=== PATIENT | female | born 1975 | race Caucasian/White ===

== ENCOUNTER 2016-12-24 00:11 | Inpatient (IN) | payer OTHER, MEDICARE ==
[~2016-12-24] VITALS: Ht 175.3 cm; Wt 143.8 kg
[2016-12-24 01:02] LABS: HEMATOCRIT 28.4 % (34.6-47.8); HEMOGLOBIN 9.4 g/dL (11.7-16.4)
[2016-12-24 01:09] LABS: BLOOD UREA NITROGEN 96 mg/dL (7-18)
[2016-12-24 02:28] LABS: IS PT STATUS REG ER OR PRE ER? YES
[2016-12-24] MEDS ORDERED: ONDANSETRON 2MG/ML, 2ML IV PRN (02:30)
[2016-12-24] MEDS ORDERED: NITROGLYCERIN 0.4 MG BOTTLE (25 TABS) SL PRN (02:30)
[2016-12-24] MEDS ORDERED: NITROGLYCERIN 0.4 MG/SPRAY SL PRN (02:30)
[2016-12-24 03:19] LABS: IS PT STATUS REG ER OR PRE ER? YES
[2016-12-24] MEDS ORDERED: [UNRECOGNIZED DRUG - CODE] INJ (04:14)
[2016-12-24] MEDS ORDERED: AMLO2.5T PO (04:14)
[2016-12-24] MEDS ORDERED: DULO60CA7 PO (04:14)
[2016-12-24] MEDS ORDERED: CALC0.25 PO (04:14)
[2016-12-24] MEDS ORDERED: GABA300C10 PO (04:14)
[2016-12-24] MEDS ORDERED: MAGN400T36 PO (04:14)
[2016-12-24] MEDS ORDERED: VALS40TA2 PO (04:14)
[2016-12-24] MEDS ORDERED: ARIP5TAB13 PO (04:14)
[2016-12-24] MEDS: ROPINIROLE 0.25MG TABLET PO SCH ×4 (04:15→21:06)
[2016-12-24] MEDS: SODIUM CHLORIDE FLUSH 10ML SYR IVF SCH ×2 (09:00→21:07)
[2016-12-24] MEDS ORDERED: ROPINIROLE 0.25MG TABLET PO SCH (09:00)
[2016-12-24 09:16] VITALS: BP 183/122
[2016-12-24] MEDS: HEPARIN 5,000 UNITS/ML, 1ML SQ SCH ×2 (10:00→18:00)
[2016-12-24 10:27] LABS: IS PT STATUS REG ER OR PRE ER? NO
[2016-12-24 14:58] LABS: IS PT STATUS REG ER OR PRE ER? NO
[2016-12-24 16:00] VITALS: BP 167/103
[2016-12-24] MEDS: ACETAMINOPHEN 325 MG TABLET PO PRN (18:20)
[2016-12-24 18:55] VITALS: BP 170/98
[2016-12-25 01:38] VITALS: BP 170/102
[2016-12-25] MEDS: HEPARIN 5,000 UNITS/ML, 1ML SQ SCH ×2 (01:53→10:14)
[2016-12-25] MEDS: ACETAMINOPHEN 325 MG TABLET PO PRN ×3 (01:53→12:52)
[2016-12-25] MEDS ORDERED: hydrALAzine 20 MG/ML, 1ML ONE (02:06)
[2016-12-25] MEDS ORDERED: LABE100T3 PO (02:26)
[2016-12-25] MEDS ORDERED: hydrALAzine 20 MG/ML, 1ML IV PRN (02:30)
[2016-12-25 05:38] LABS: BLOOD UREA NITROGEN 94 mg/dL (7-18)
[2016-12-25 05:55] LABS: HEMATOCRIT 29.3 % (34.6-47.8); HEMOGLOBIN 9.9 g/dL (11.7-16.4); WHITE BLOOD COUNT 9.3 x10^3/uL (3.4-10)
[2016-12-25 07:53] VITALS: BP 169/100
[2016-12-25] MEDS: ROPINIROLE 0.25MG TABLET PO SCH ×2 (08:31→16:00)
[2016-12-25] MEDS ORDERED: AMLODIPINE 2.5 MG TABLET PO SCH (09:00)
[2016-12-25] MEDS: SODIUM CHLORIDE FLUSH 10ML SYR IVF SCH (09:00)
[2016-12-25] MEDS ORDERED: DULOXETINE 30 MG CAPSULE.DR PO SCH (09:00)
[2016-12-25] MEDS ORDERED: CALCITRIOL 0.25 MCG CAPSULE PO SCH (09:00)
[2016-12-25] MEDS ORDERED: ARIPIPRAZOLE 5 MG TABLET PO SCH (09:00)
[2016-12-25] MEDS ORDERED: MAGNESIUM OXIDE 400 MG TABLET PO SCH (09:00)
[2016-12-25] MEDS ORDERED: VALSARTAN 80 MG TABLET PO SCH ×2 (09:30→21:00)
[2016-12-25 10:08] LABS: HEP B SURF. AB 71.5 mIU/mL (0.0-10.0)
[2016-12-25 13:03] VITALS: BP 168/98
[2016-12-25] MEDS ORDERED: LABETALOL 100 MG TABLET PO SCH (18:00)
== END 2016-12-25 18:33 | disposition home or self-care (01) | DRG 682 ==
LOC: ED 02:37 → EDIP 02:50 → 5SO 08:34
PROVIDERS: ADMIT Internal Medicine; ATTEND Internal Medicine
PROC: 5A1D70Z Performance of Urinary Filtration, Intermittent, Less than 6 Hours Per Day (ICD-10-PCS; principal; 2016-12-24)
DX: I13.11 Hypertensive heart and chronic kidney disease without heart failure, with stage 5 chronic kidney disease, or end stage renal disease (principal); N18.6 End stage renal disease; G61.0 Guillain-Barre syndrome; I27.21 Secondary pulmonary arterial hypertension; N25.81 Secondary hyperparathyroidism of renal origin; R06.00 Dyspnea, unspecified; D63.1 Anemia in chronic kidney disease; D72.829 Elevated white blood cell count, unspecified; Z82.49 Family history of ischemic heart disease and other diseases of the circulatory system; Z99.2 Dependence on renal dialysis
CPT/HCPCS: 36415; 71010; 80048; 80061; 82040; 83880; 84484; 85025; 86704; 86706; 87340; 93005; 93306; J1644; J2405; J0360

== ENCOUNTER 2017-04-23 01:07 | Inpatient (IN) | payer MEDICARE, OTHER ==
[~2017-04-23] VITALS: Ht 175.3 cm; Wt 126.7 kg
[~2017-04-23 01:07] MED LIST: AMLO2.5T PO; ARIP5TAB13 PO; CALC0.25 PO; DULO60CA7 PO; GABA300C10 PO; LABE100T3 PO; MAGN400T36 PO; VALS40TA2 PO; [UNRECOGNIZED DRUG - CODE] INJ
[2017-04-23] MEDS ORDERED: SODIUM CHLORIDE FLUSH 10ML SYR IVF ONE (01:30)
[2017-04-23 01:32] LABS: BASOPHILS # (AUTO) 0.04 x10^3/uL (0-0.1); BASOPHILS % (AUTO) 0 % (0-1); EOSINOPHILS # (AUTO) 0.27 x10^3/uL (0-0.4); EOSINOPHILS % (AUTO) 2 % (1-7); LYMPHOCYTES # (AUTO) 2.26 x10^3/uL (1-3.4); LYMPHOCYTES % (AUTO) 19 % (22-44); MD NO; MEAN CORPUSCULAR HEMOGLOBIN 32.8 pg (27.0-34.8); MEAN CORPUSCULAR VOLUME 99.5 fL (80-100); MONOCYTES # (AUTO) 0.67 x10^3/uL (0.2-0.8); MONOCYTES % (AUTO) 6 % (2-9); NEUTROPHILS # (AUTO) 8.52 x10^3/uL (1.8-6.8); NEUTROPHILS % (AUTO) 73 % (42-75); PLATELET COUNT 153 x10^3/uL (130-400); RED BLOOD COUNT 2.37 x10^6/uL (3.82-5.3); RED CELL DISTRIBUTION WIDTH 15.6 % (9.6-15.2)
[2017-04-23 01:45] LABS: ALANINE AMINOTRANSFERASE 14 U/L (12-78); ALBUMIN 3.2 g/dL (3.4-5.0); ANION GAP 16 mmol/L (5-15); CALCIUM 8.8 mg/dL (8.5-10.1); CHLORIDE 101 mmol/L (98-107)
[2017-04-23 01:49] LABS: ALKALINE PHOSPHATASE 97 U/L (45-117); BILIRUBIN,TOTAL 0.5 mg/dL (0.2-1.0); TOTAL PROTEIN 7.5 g/dL (6.4-8.2)
[2017-04-23 03:06] VITALS: BP 168/96
[2017-04-23] MEDS ORDERED: hydrALAzine 20 MG/ML, 1ML IVPush PRN (06:00)
[2017-04-23] MEDS ORDERED: ACETAMINOPHEN 325 MG TABLET PO PRN (06:00)
[2017-04-23] MEDS ORDERED: ONDANSETRON 2MG/ML, 2ML IVPush PRN (06:00)
[2017-04-23 08:07] VITALS: BP 149/90
[2017-04-23] MEDS ORDERED: ARANESP 100 MCG/ML **ESRD SQ SCH (08:30)
[2017-04-23] MEDS: ARIPIPRAZOLE 5 MG TABLET PO SCH (10:09)
[2017-04-23] MEDS: MAGNESIUM OXIDE 400 MG TABLET PO SCH (10:10)
[2017-04-23] MEDS: AMLODIPINE 5 MG TABLET PO SCH (10:10)
[2017-04-23] MEDS: CALCITRIOL 0.25 MCG CAPSULE PO SCH (10:10)
[2017-04-23] MEDS: DULOXETINE 30 MG CAPSULE.DR PO SCH (10:10)
[2017-04-23 13:02] VITALS: BP 155/88
[2017-04-23 13:27] LABS: MICROSCOPIC MANUAL
[2017-04-23 13:29] LABS: CULTURE INDICATED? YES
[2017-04-23] MEDS ORDERED: GABAPENTIN 300 MG CAPSULE PO SCH (21:00)
[2017-04-23 21:01] VITALS: BP 164/100
[2017-04-23] MEDS: LABETALOL 100 MG TABLET PO SCH (21:01)
[2017-04-23 21:29] VITALS: BP 165/93
[2017-04-24 01:29] VITALS: BP 147/91
[2017-04-24 04:56] LABS: BASOPHILS # (AUTO) 0.04 x10^3/uL (0-0.1); BASOPHILS % (AUTO) 1 % (0-1); EOSINOPHILS # (AUTO) 0.22 x10^3/uL (0-0.4); EOSINOPHILS % (AUTO) 3 % (1-7); LYMPHOCYTES # (AUTO) 2.21 x10^3/uL (1-3.4); LYMPHOCYTES % (AUTO) 26 % (22-44); MD NO; MEAN CORPUSCULAR HEMOGLOBIN 33.5 pg (27.0-34.8); MEAN CORPUSCULAR HGB CONC 33.6 g/dL (32.4-35.8); MEAN CORPUSCULAR VOLUME 99.5 fL (80-100); MEAN PLATELET VOLUME 6.4 fL (7.4-10.4); MONOCYTES # (AUTO) 0.62 x10^3/uL (0.2-0.8); MONOCYTES % (AUTO) 7 % (2-9); NEUTROPHILS # (AUTO) 5.42 x10^3/uL (1.8-6.8); NEUTROPHILS % (AUTO) 64 % (42-75); PLATELET COUNT 152 x10^3/uL (130-400); RED BLOOD COUNT 2.45 x10^6/uL (3.82-5.3); RED CELL DISTRIBUTION WIDTH 15.1 % (9.6-15.2)
[2017-04-24 05:07] LABS: CHLORIDE 103 mmol/L (98-107)
[2017-04-24 05:22] LABS: ALANINE AMINOTRANSFERASE 14 U/L (12-78); ALBUMIN 3.3 g/dL (3.4-5.0); ALKALINE PHOSPHATASE 96 U/L (45-117); ANION GAP 10 mmol/L (5-15); BILIRUBIN,TOTAL 0.5 mg/dL (0.2-1.0); CALCIUM 9.3 mg/dL (8.5-10.1); CREATININE 8.67 mg/dL (0.55-1.02); THYROID STIMULATING HORMONE 0.017 mIU/L (0.358-3.740); TOTAL PROTEIN 7.7 g/dL (6.4-8.2)
[2017-04-24 06:59] VITALS: BP 152/91
[2017-04-24] MEDS: CALCITRIOL 0.25 MCG CAPSULE PO SCH (08:52)
[2017-04-24] MEDS: MAGNESIUM OXIDE 400 MG TABLET PO SCH (08:52)
[2017-04-24] MEDS: DULOXETINE 30 MG CAPSULE.DR PO SCH (08:53)
[2017-04-24] MEDS: ARIPIPRAZOLE 5 MG TABLET PO SCH (08:53)
[2017-04-24] MEDS: LABETALOL 100 MG TABLET PO SCH (08:53)
[2017-04-24] MEDS: AMLODIPINE 5 MG TABLET PO SCH (08:53)
[2017-04-27] MEDS ORDERED: AMLO5TAB2 PO (12:28)
[2017-04-27] MEDS ORDERED: LABE200T3 PO (12:32)
[2017-04-27] MEDS ORDERED: VALS320T2 PO (12:33)
[2017-04-27] MEDS ORDERED: CALC0.5C9 PO (12:35)
== END 2017-04-24 12:36 | disposition home or self-care (01) | DRG 682 ==
LOC: ED 02:14 → EDIP 02:17 → 3NW 02:50
PROVIDERS: ADMIT Hospitalist; ATTEND Hospitalist
PROC: 5A1D70Z Performance of Urinary Filtration, Intermittent, Less than 6 Hours Per Day (ICD-10-PCS; principal; 2017-04-23)
DX: I12.0 Hypertensive chronic kidney disease with stage 5 chronic kidney disease or end stage renal disease (principal); N18.6 End stage renal disease; J96.00 Acute respiratory failure, unspecified whether with hypoxia or hypercapnia; I42.9 Cardiomyopathy, unspecified; E66.01 Morbid (severe) obesity due to excess calories; E87.5 Hyperkalemia; E75.21 Fabry (-Anderson) disease; N25.81 Secondary hyperparathyroidism of renal origin; N39.0 Urinary tract infection, site not specified; Z68.41 Body mass index [BMI] 40.0-44.9, adult; D63.8 Anemia in other chronic diseases classified elsewhere; Z99.2 Dependence on renal dialysis; D63.1 Anemia in chronic kidney disease; I16.0 Hypertensive urgency; Z59.0 Homelessness; Z82.49 Family history of ischemic heart disease and other diseases of the circulatory system; Z91.19 Patient's noncompliance with other medical treatment and regimen
CPT/HCPCS: 36415; 71045; 80053; 83880; 84443; 84703; 85025; 87086; 93005; 99285; J0882

== ENCOUNTER 2017-05-09 23:35 | Emergency (ER) | payer MEDICAID, MEDICARE ==
[~2017-05-09] VITALS: Ht 175.3 cm; Wt 126.7 kg
[~2017-05-09 23:35] MED LIST changes: +AMLO5TAB2 PO; +CALC0.5C9 PO; +DULO30CA2 PO; +LABE200T3 PO; +VALS320T2 PO
[2017-05-09 23:38] VITALS: BP 175/108
[2017-05-10] MEDS ORDERED: GABAPENTIN 300 MG CAPSULE ONE (00:47)
[2017-05-10] MEDS ORDERED: KETOROLAC 30 MG/1 ML ONE (00:47)
[2017-05-10] MEDS ORDERED: KETOROLAC 30 MG/1 ML IM ONE (01:00)
[2017-05-10] MEDS ORDERED: GABAPENTIN 300 MG CAPSULE PO ONE (01:00)
== END 2017-05-10 01:22 | disposition home or self-care (01) ==
LOC: ED 23:59
DX: M79.672 Pain in left foot (principal); M79.642 Pain in left hand; M79.641 Pain in right hand; I12.9 Hypertensive chronic kidney disease with stage 1 through stage 4 chronic kidney disease, or unspecified chronic kidney disease; N18.9 Chronic kidney disease, unspecified; G62.9 Polyneuropathy, unspecified
CPT/HCPCS: 96372; 99283; J1885

== ENCOUNTER 2017-05-21 09:45 | Emergency (ER) | payer SELFPAY ==
[~2017-05-21] VITALS: Ht 175.3 cm; Wt 125.8 kg
[2017-05-21] MEDS ORDERED: ALBUTEROL/IPRATROPIUM 2.5MG/0.5MG, 3 ML ONE (10:13)
[2017-05-21] MEDS ORDERED: ALBUTEROL/IPRATROPIUM 2.5MG/0.5MG, 3 ML NPPB ONE (10:30)
[2017-05-21 10:34] LABS: ALBUMIN 3.3 g/dL (3.4-5.0); ANION GAP 8 mmol/L (5-15); CHLORIDE 100 mmol/L (98-107)
[2017-05-21 10:55] LABS: BASOPHILS # (AUTO) 0.04 x10^3/uL (0-0.1); BASOPHILS % (AUTO) 0 % (0-1); EOSINOPHILS # (AUTO) 0.15 x10^3/uL (0-0.4); EOSINOPHILS % (AUTO) 1 % (1-7); LYMPHOCYTES # (AUTO) 2.03 x10^3/uL (1-3.4); LYMPHOCYTES % (AUTO) 19 % (22-44); MD NO; MEAN CORPUSCULAR HGB CONC 33.8 g/dL (32.4-35.8); MEAN CORPUSCULAR VOLUME 100.6 fL (80-100); MONOCYTES # (AUTO) 0.54 x10^3/uL (0.2-0.8); MONOCYTES % (AUTO) 5 % (2-9); NEUTROPHILS # (AUTO) 7.88 x10^3/uL (1.8-6.8); NEUTROPHILS % (AUTO) 74 % (42-75); PLATELET COUNT 295 x10^3/uL (130-400); RED BLOOD COUNT 2.59 x10^6/uL (3.82-5.3); RED CELL DISTRIBUTION WIDTH 14.5 % (9.6-15.2)
[2017-05-21 11:36] VITALS: BP 189/112
[2017-05-22] MEDS ORDERED: LABE100T3 PO (21:50)
== END 2017-05-21 11:44 | disposition home or self-care (01) ==
LOC: ED 11:05
DX: J20.8 Acute bronchitis due to other specified organisms (principal); B97.89 Other viral agents as the cause of diseases classified elsewhere; I12.9 Hypertensive chronic kidney disease with stage 1 through stage 4 chronic kidney disease, or unspecified chronic kidney disease; N18.9 Chronic kidney disease, unspecified; Z91.14 Patient's other noncompliance with medication regimen; Z99.2 Dependence on renal dialysis
CPT/HCPCS: 36415; 71046; 80048; 82040; 83605; 85025; 93005; 94640; 99285; J7620

== ENCOUNTER 2017-05-22 21:05 | Emergency (ER) | payer SELFPAY ==
[~2017-05-22] VITALS: Ht 175.3 cm; Wt 126.9 kg
[2017-05-22] MEDS ORDERED: LABE100T3 PO (21:50)
[2017-05-22 21:52] LABS: BASOPHILS # (AUTO) 0.05 x10^3/uL (0-0.1); BASOPHILS % (AUTO) 0 % (0-1); EOSINOPHILS % (AUTO) 2 % (1-7); LYMPHOCYTES # (AUTO) 2.46 x10^3/uL (1-3.4); LYMPHOCYTES % (AUTO) 21 % (22-44); MD NO; MEAN CORPUSCULAR HEMOGLOBIN 33.7 pg (27.0-34.8); MEAN CORPUSCULAR HGB CONC 33.8 g/dL (32.4-35.8); MEAN CORPUSCULAR VOLUME 99.9 fL (80-100); MEAN PLATELET VOLUME 6.4 fL (7.4-10.4); MONOCYTES # (AUTO) 0.64 x10^3/uL (0.2-0.8); MONOCYTES % (AUTO) 5 % (2-9); NEUTROPHILS # (AUTO) 8.63 x10^3/uL (1.8-6.8); NEUTROPHILS % (AUTO) 72 % (42-75); PLATELET COUNT 290 x10^3/uL (130-400); RED BLOOD COUNT 2.32 x10^6/uL (3.82-5.3); RED CELL DISTRIBUTION WIDTH 14.9 % (9.6-15.2)
[2017-05-22] MEDS ORDERED: ALBUTEROL/IPRATROPIUM 2.5MG/0.5MG, 3 ML ONE (21:52)
[2017-05-22] MEDS: ALBUTEROL/IPRATROPIUM 2.5MG/0.5MG, 3 ML NPPB SCH ×2 (21:57→21:58)
[2017-05-22 22:03] LABS: ALANINE AMINOTRANSFERASE 14 U/L (12-78); ALBUMIN 3.2 g/dL (3.4-5.0); ANION GAP 7 mmol/L (5-15); CALCIUM 9.1 mg/dL (8.5-10.1); CHLORIDE 105 mmol/L (98-107)
[2017-05-22 22:07] LABS: ALKALINE PHOSPHATASE 83 U/L (45-117); BILIRUBIN,TOTAL 0.4 mg/dL (0.2-1.0); TOTAL PROTEIN 7.3 g/dL (6.4-8.2)
[2017-05-22] MEDS ORDERED: LABETALOL 100 MG TABLET PO SCH (22:30)
[2017-05-22 23:09] VITALS: BP 200/115
[2017-05-23] MEDS ORDERED: VALSARTAN 320 MG TABLET PO SCH (09:00)
== END 2017-05-22 23:12 | disposition home or self-care (01) ==
LOC: ED 21:29
DX: N18.3 Chronic kidney disease, stage 3 (moderate) (principal); I12.9 Hypertensive chronic kidney disease with stage 1 through stage 4 chronic kidney disease, or unspecified chronic kidney disease; B34.9 Viral infection, unspecified; Z99.2 Dependence on renal dialysis; Z91.19 Patient's noncompliance with other medical treatment and regimen; Z91.14 Patient's other noncompliance with medication regimen; Z88.5 Allergy status to narcotic agent
CPT/HCPCS: 36415; 80053; 83880; 85025; 93005; 94640; 99285; J7620

== ENCOUNTER 2017-05-23 21:20 | Emergency (ER) | payer SELFPAY ==
[~2017-05-23] VITALS: Ht 175.3 cm; Wt 82.0 kg
[2017-05-23 21:22] VITALS: BP 176/92
== END 2017-05-23 22:28 | disposition home or self-care (01) ==
LOC: ED 22:10
DX: J20.8 Acute bronchitis due to other specified organisms (principal); B97.89 Other viral agents as the cause of diseases classified elsewhere; I10 Essential (primary) hypertension
CPT/HCPCS: 99283; J7512

== ENCOUNTER 2017-06-09 01:41 | Emergency (ER) | payer SELFPAY ==
[~2017-06-09] VITALS: Ht 175.3 cm; Wt 124.9 kg
[2017-06-09 02:28] LABS: ALBUMIN 2.9 g/dL (3.4-5.0); ANION GAP 7 mmol/L (5-15); CALCIUM 8.6 mg/dL (8.5-10.1); CHLORIDE 99 mmol/L (98-107); CREATININE 4.99 mg/dL (0.55-1.02)
[2017-06-09 02:35] LABS: BASOPHILS # (AUTO) 0.04 x10^3/uL (0-0.1); BASOPHILS % (AUTO) 0 % (0-1); EOSINOPHILS # (AUTO) 0.12 x10^3/uL (0-0.4); EOSINOPHILS % (AUTO) 1 % (1-7); LYMPHOCYTES # (AUTO) 2.34 x10^3/uL (1-3.4); LYMPHOCYTES % (AUTO) 20 % (22-44); MD NO; MEAN CORPUSCULAR HEMOGLOBIN 32.5 pg (27.0-34.8); MEAN CORPUSCULAR HGB CONC 32.9 g/dL (32.4-35.8); MEAN CORPUSCULAR VOLUME 98.7 fL (80-100); MEAN PLATELET VOLUME 6.3 fL (7.4-10.4); MONOCYTES # (AUTO) 0.69 x10^3/uL (0.2-0.8); MONOCYTES % (AUTO) 6 % (2-9); NEUTROPHILS # (AUTO) 8.43 x10^3/uL (1.8-6.8); NEUTROPHILS % (AUTO) 73 % (42-75); PLATELET COUNT 293 x10^3/uL (130-400); RED BLOOD COUNT 2.34 x10^6/uL (3.82-5.3); RED CELL DISTRIBUTION WIDTH 14.9 % (9.6-15.2)
[2017-06-09] MEDS ORDERED: HYDROmorphone 2 MG/ML, 1ML ONE (03:35)
[2017-06-09 04:32] VITALS: BP 130/80
== END 2017-06-09 04:37 | disposition home or self-care (01) ==
LOC: ED 03:47
DX: R06.00 Dyspnea, unspecified (principal); I12.9 Hypertensive chronic kidney disease with stage 1 through stage 4 chronic kidney disease, or unspecified chronic kidney disease; N18.9 Chronic kidney disease, unspecified; Z99.2 Dependence on renal dialysis
CPT/HCPCS: 36415; 71045; 80048; 82040; 83880; 84484; 85025; 93005; 99285

== ENCOUNTER 2017-08-23 13:00 | Emergency (ER) | payer MEDICAID ==
[~2017-08-23] VITALS: Ht 175.3 cm; Wt 114.1 kg
[2017-08-23 14:57] LABS: BASOPHILS # (AUTO) 0.04 x10^3/uL (0-0.1); BASOPHILS % (AUTO) 1 % (0-1); EOSINOPHILS # (AUTO) 0.11 x10^3/uL (0-0.4); EOSINOPHILS % (AUTO) 2 % (1-7); LYMPHOCYTES # (AUTO) 2.26 x10^3/uL (1-3.4); LYMPHOCYTES % (AUTO) 32 % (22-44); MD NO; MEAN CORPUSCULAR HEMOGLOBIN 33.5 pg (27.0-34.8); MEAN CORPUSCULAR HGB CONC 33.6 g/dL (32.4-35.8); MEAN CORPUSCULAR VOLUME 99.5 fL (80-100); MEAN PLATELET VOLUME 6.8 fL (7.4-10.4); MONOCYTES # (AUTO) 0.45 x10^3/uL (0.2-0.8); MONOCYTES % (AUTO) 6 % (2-9); NEUTROPHILS # (AUTO) 4.32 x10^3/uL (1.8-6.8); NEUTROPHILS % (AUTO) 60 % (42-75); PLATELET COUNT 270 x10^3/uL (130-400); RED BLOOD COUNT 2.64 x10^6/uL (3.82-5.3); RED CELL DISTRIBUTION WIDTH 15.9 % (9.6-15.2)
[2017-08-23 15:04] LABS: ALBUMIN 3.6 g/dL (3.4-5.0); ANION GAP 7 mmol/L (5-15); CALCIUM 9.2 mg/dL (8.5-10.1); CHLORIDE 103 mmol/L (98-107); CREATININE 8.04 mg/dL (0.55-1.02)
[2017-08-23 15:27] VITALS: BP 140/81
== END 2017-08-23 16:00 | disposition home or self-care (01) ==
LOC: ED 15:45
DX: N92.0 Excessive and frequent menstruation with regular cycle (principal); N93.8 Other specified abnormal uterine and vaginal bleeding; I12.0 Hypertensive chronic kidney disease with stage 5 chronic kidney disease or end stage renal disease; N18.6 End stage renal disease; G62.9 Polyneuropathy, unspecified; Z99.2 Dependence on renal dialysis
CPT/HCPCS: 36415; 76830; 80048; 82040; 84703; 85025; 99285

== ENCOUNTER 2017-08-30 13:07 | Inpatient (IN) | payer MEDICAID ==
[~2017-08-30] VITALS: Ht 175.3 cm; Wt 114.2 kg
[2017-08-30] MEDS ORDERED: SODIUM CHLORIDE FLUSH 10ML SYR IVF ONE (13:30)
[2017-08-30] MEDS ORDERED: hydrALAzine 20 MG/ML, 1ML ONE (13:56)
[2017-08-30] MEDS ORDERED: hydrALAzine 20 MG/ML, 1ML IV ONE ×2 (14:00→14:30)
[2017-08-30 14:10] LABS: MEAN CORPUSCULAR HEMOGLOBIN 33.4 pg (27.0-34.8); MEAN CORPUSCULAR HGB CONC 33.7 g/dL (32.4-35.8); MEAN CORPUSCULAR VOLUME 99.3 fL (80-100); MEAN PLATELET VOLUME 7.2 fL (7.4-10.4); PLATELET COUNT 241 x10^3/uL (130-400); RED CELL DISTRIBUTION WIDTH 15.6 % (9.6-15.2)
[2017-08-30 14:13] LABS: BASOPHILS % (AUTO) 0 % (0-1); EOSINOPHILS # (AUTO) 0.06 x10^3/uL (0-0.4); EOSINOPHILS % (AUTO) 1 % (1-7); LYMPHOCYTES # (AUTO) 1.54 x10^3/uL (1-3.4); LYMPHOCYTES % (AUTO) 13 % (22-44); MD NO; MONOCYTES # (AUTO) 0.38 x10^3/uL (0.2-0.8); MONOCYTES % (AUTO) 3 % (2-9); NEUTROPHILS # (AUTO) 9.92 x10^3/uL (1.8-6.8); NEUTROPHILS % (AUTO) 83 % (42-75)
[2017-08-30 14:14] LABS: HEMOGRAM NOTE RECHECKED
[2017-08-30 14:15] LABS: ALANINE AMINOTRANSFERASE 15 U/L (12-78); ALBUMIN 3.4 g/dL (3.4-5.0); ANION GAP 8 mmol/L (5-15); CALCIUM 9.4 mg/dL (8.5-10.1); CHLORIDE 100 mmol/L (98-107)
[2017-08-30 14:16] LABS: D-DIMER 2.65 ug/mlFEU (0.00-0.52); INTERNATIONAL NORMALIZED RATIO 1.01 (0.93-1.1); PROTHROMBIN TIME 10.4 Seconds (9.6-11.5)
[2017-08-30 14:19] LABS: ALKALINE PHOSPHATASE 84 U/L (45-117); BILIRUBIN,TOTAL 0.7 mg/dL (0.2-1.0); TOTAL PROTEIN 7.6 g/dL (6.4-8.2)
[2017-08-30] MEDS ORDERED: ALBUTEROL 0.5%, 20ML NPPB ONE (15:00)
[2017-08-30] MEDS ORDERED: CALCIUM CHLORIDE 10%, 10ML SYR ONE (15:26)
[2017-08-30] MEDS ORDERED: DEXTROSE 50%, 50ML SYRINGE ONE (15:26)
[2017-08-30] MEDS ORDERED: INSULIN REGULAR 100 UNITS/ML, 3ML VIAL ONE (15:27)
[2017-08-30] MEDS ORDERED: INSULIN REGULAR 100 UNITS/ML, 3ML VIAL IVPush ONE (16:00)
[2017-08-30] MEDS ORDERED: CALCIUM CHLORIDE 10%, 10ML SYR IVPush ONE (16:00)
[2017-08-30] MEDS ORDERED: ONDANSETRON 2MG/ML, 2ML IVPush PRN (16:00)
[2017-08-30] MEDS ORDERED: DEXTROSE 50%, 50ML SYRINGE IVPush ONE (16:00)
[2017-08-30] MEDS ORDERED: ONDANSETRON ODT 4 MG PO PRN (16:00)
[2017-08-30 16:06] VITALS: BP 208/107
[2017-08-30] MEDS ORDERED: hydrALAzine 20 MG/ML, 1ML IV PRN (16:30)
[2017-08-30 17:13] VITALS: BP 182/79
[2017-08-30 18:04] LABS: CULTURE INDICATED? YES; MICROSCOPIC INDICATED
[2017-08-30] MEDS: GABAPENTIN 100 MG CAPSULE PO SCH (21:39)
[2017-08-30 21:40] VITALS: BP 178/108
[2017-08-30] MEDS: HEPARIN 5,000 UNITS/ML, 1ML SQ SCH (21:40)
[2017-08-30] MEDS: ACETAMINOPHEN 325 MG TABLET PO PRN (21:52)
[2017-08-31] VITALS (7 sets, daily range): BP systolic 143–161; BP diastolic 79–93
[2017-08-31] MEDS: ACETAMINOPHEN 325 MG TABLET PO PRN ×2 (04:41→21:28)
[2017-08-31] MEDS: HEPARIN 5,000 UNITS/ML, 1ML SQ SCH ×3 (05:46→21:04)
[2017-08-31 05:56] LABS: MEAN CORPUSCULAR HEMOGLOBIN 33.8 pg (27.0-34.8); MEAN CORPUSCULAR HGB CONC 33.7 g/dL (32.4-35.8); MEAN CORPUSCULAR VOLUME 100.2 fL (80-100); MEAN PLATELET VOLUME 6.9 fL (7.4-10.4); PLATELET COUNT 213 x10^3/uL (130-400); RED CELL DISTRIBUTION WIDTH 15.9 % (9.6-15.2)
[2017-08-31 06:00] LABS: ANION GAP 6 mmol/L (5-15); CALCIUM 9.2 mg/dL (8.5-10.1); CHLORIDE 101 mmol/L (98-107)
[2017-08-31 06:03] LABS: ALANINE AMINOTRANSFERASE 12 U/L (12-78); ALKALINE PHOSPHATASE 74 U/L (45-117); BILIRUBIN,TOTAL 0.9 mg/dL (0.2-1.0); CREATININE 8.18 mg/dL (0.55-1.02); TOTAL PROTEIN 6.9 g/dL (6.4-8.2)
[2017-08-31 06:48] LABS: BASOPHILS # (AUTO) 0.03 x10^3/uL (0-0.1); BASOPHILS % (AUTO) 0 % (0-1); EOSINOPHILS # (AUTO) 0.11 x10^3/uL (0-0.4); EOSINOPHILS % (AUTO) 1 % (1-7); LYMPHOCYTES # (AUTO) 2.24 x10^3/uL (1-3.4); LYMPHOCYTES % (AUTO) 22 % (22-44); MD SCAN; MONOCYTES # (AUTO) 0.68 x10^3/uL (0.2-0.8); MONOCYTES % (AUTO) 7 % (2-9); NEUTROPHILS # (AUTO) 6.97 x10^3/uL (1.8-6.8); NEUTROPHILS % (AUTO) 69 % (42-75)
[2017-08-31] MEDS: VALSARTAN 320 MG TABLET PO SCH (08:00)
[2017-08-31] MEDS: ARIPIPRAZOLE 5 MG TABLET PO SCH (08:00)
[2017-08-31] MEDS: DULOXETINE 30 MG CAPSULE.DR PO SCH (08:00)
[2017-08-31] MEDS: LABETALOL 100 MG TABLET PO SCH (08:01)
[2017-08-31] MEDS: GABAPENTIN 100 MG CAPSULE PO SCH (21:04)
[2017-09-01] VITALS (7 sets, daily range): BP systolic 140–170; BP diastolic 88–113
[2017-09-01 05:28] LABS: BASOPHILS # (AUTO) 0.05 x10^3/uL (0-0.1); BASOPHILS % (AUTO) 1 % (0-1); EOSINOPHILS # (AUTO) 0.37 x10^3/uL (0-0.4); EOSINOPHILS % (AUTO) 4 % (1-7); LYMPHOCYTES # (AUTO) 2.72 x10^3/uL (1-3.4); LYMPHOCYTES % (AUTO) 30 % (22-44); MD NO; MEAN CORPUSCULAR HEMOGLOBIN 33.1 pg (27.0-34.8); MEAN CORPUSCULAR HGB CONC 33.9 g/dL (32.4-35.8); MEAN CORPUSCULAR VOLUME 97.6 fL (80-100); MEAN PLATELET VOLUME 7.2 fL (7.4-10.4); MONOCYTES # (AUTO) 0.62 x10^3/uL (0.2-0.8); MONOCYTES % (AUTO) 7 % (2-9); NEUTROPHILS # (AUTO) 5.45 x10^3/uL (1.8-6.8); NEUTROPHILS % (AUTO) 59 % (42-75); PLATELET COUNT 252 x10^3/uL (130-400); RED BLOOD COUNT 2.71 x10^6/uL (3.82-5.3); RED CELL DISTRIBUTION WIDTH 16.7 % (9.6-15.2)
[2017-09-01 05:40] LABS: ALANINE AMINOTRANSFERASE 12 U/L (12-78); ALBUMIN 3.1 g/dL (3.4-5.0); ANION GAP 7 mmol/L (5-15); CALCIUM 9.4 mg/dL (8.5-10.1); CHLORIDE 101 mmol/L (98-107)
[2017-09-01] MEDS: HEPARIN 5,000 UNITS/ML, 1ML SQ SCH ×3 (05:41→20:45)
[2017-09-01 05:43] LABS: ALKALINE PHOSPHATASE 76 U/L (45-117); BILIRUBIN,TOTAL 1.3 mg/dL (0.2-1.0); CREATININE 5.93 mg/dL (0.55-1.02); TOTAL PROTEIN 7.3 g/dL (6.4-8.2)
[2017-09-01] MEDS: LABETALOL 100 MG TABLET PO SCH (09:09)
[2017-09-01] MEDS: VALSARTAN 320 MG TABLET PO SCH (09:09)
[2017-09-01] MEDS: ARIPIPRAZOLE 5 MG TABLET PO SCH (09:09)
[2017-09-01] MEDS: DULOXETINE 30 MG CAPSULE.DR PO SCH (09:09)
[2017-09-01] MEDS ORDERED: ARANESP 100 MCG/ML **ESRD SQ SCH (12:30)
[2017-09-01] MEDS: GABAPENTIN 100 MG CAPSULE PO SCH (20:45)
[2017-09-02 01:50] VITALS: BP 160/80
[2017-09-02] MEDS: HEPARIN 5,000 UNITS/ML, 1ML SQ SCH (05:08)
[2017-09-02] MEDS: LABETALOL 100 MG TABLET PO SCH (07:18)
[2017-09-02 07:28] LABS: BASOPHILS # (AUTO) 0.05 x10^3/uL (0-0.1); BASOPHILS % (AUTO) 1 % (0-1); EOSINOPHILS # (AUTO) 0.38 x10^3/uL (0-0.4); EOSINOPHILS % (AUTO) 4 % (1-7); LYMPHOCYTES # (AUTO) 2.81 x10^3/uL (1-3.4); LYMPHOCYTES % (AUTO) 32 % (22-44); MD NO; MEAN CORPUSCULAR VOLUME 97.1 fL (80-100); MEAN PLATELET VOLUME 6.8 fL (7.4-10.4); MONOCYTES # (AUTO) 0.55 x10^3/uL (0.2-0.8); MONOCYTES % (AUTO) 6 % (2-9); NEUTROPHILS # (AUTO) 5.07 x10^3/uL (1.8-6.8); NEUTROPHILS % (AUTO) 57 % (42-75); PLATELET COUNT 291 x10^3/uL (130-400); RED BLOOD COUNT 2.78 x10^6/uL (3.82-5.3); RED CELL DISTRIBUTION WIDTH 15.6 % (9.6-15.2)
[2017-09-02 07:43] LABS: ALBUMIN 2.9 g/dL (3.4-5.0); ANION GAP 7 mmol/L (5-15); CALCIUM 9.5 mg/dL (8.5-10.1); CHLORIDE 100 mmol/L (98-107)
[2017-09-02 07:46] LABS: CREATININE 8.67 mg/dL (0.55-1.02)
[2017-09-02 08:15] VITALS: BP 149/71
[2017-09-02] MEDS: DULOXETINE 30 MG CAPSULE.DR PO SCH (08:24)
[2017-09-02] MEDS: VALSARTAN 320 MG TABLET PO SCH (08:24)
[2017-09-02] MEDS: ARIPIPRAZOLE 5 MG TABLET PO SCH (08:25)
== END 2017-09-02 13:13 | disposition home or self-care (01) | DRG 640 ==
LOC: ED 13:38 → EDIP 14:58 → 4EST 15:53 → DCLOUNGE 09-02 12:41
PROVIDERS: ADMIT Internal Medicine; ATTEND Internal Medicine
PROC: 5A1D70Z Performance of Urinary Filtration, Intermittent, Less than 6 Hours Per Day (ICD-10-PCS; 2017-08-30)
PROC: 30233N1 Transfusion of Nonautologous Red Blood Cells into Peripheral Vein, Percutaneous Approach (ICD-10-PCS; principal; 2017-08-31)
PROC: 5A1D70Z Performance of Urinary Filtration, Intermittent, Less than 6 Hours Per Day (ICD-10-PCS; 2017-08-31)
PROC: 5A1D70Z Performance of Urinary Filtration, Intermittent, Less than 6 Hours Per Day (ICD-10-PCS; 2017-09-02)
DX: E87.5 Hyperkalemia (principal); J96.91 Respiratory failure, unspecified with hypoxia; N18.6 End stage renal disease; I13.2 Hypertensive heart and chronic kidney disease with heart failure and with stage 5 chronic kidney disease, or end stage renal disease; I42.9 Cardiomyopathy, unspecified; N17.9 Acute kidney failure, unspecified; N25.81 Secondary hyperparathyroidism of renal origin; D63.1 Anemia in chronic kidney disease; E87.1 Hypo-osmolality and hyponatremia; D72.829 Elevated white blood cell count, unspecified; I16.0 Hypertensive urgency; E75.21 Fabry (-Anderson) disease; E66.9 Obesity, unspecified; I50.9 Heart failure, unspecified; N25.0 Renal osteodystrophy; Z82.5 Family history of asthma and other chronic lower respiratory diseases; Z82.49 Family history of ischemic heart disease and other diseases of the circulatory system; Z91.15 Patient's noncompliance with renal dialysis; Z99.2 Dependence on renal dialysis
CPT/HCPCS: 36415; 71045; 80048; 80053; 81001; 82040; 82728; 83540; 83550; 83880; 84484; 85025; 85379; 85610; 85730; 86850; 86900; 86923; 87086; 93005; 96374; 96375; 96376; J0882; J1644; J0360; P9016

== ENCOUNTER 2017-09-12 00:21 | Emergency (ER) | payer MEDICAID ==
[~2017-09-12] VITALS: Ht 175.3 cm; Wt 116.6 kg
[2017-09-12] MEDS ORDERED: LORazepam 2 MG/ML, 1ML IVPush ONE (00:30)
[2017-09-12] MEDS ORDERED: LORazepam 2 MG/ML, 1ML ONE (00:47)
[2017-09-12 01:03] LABS: ALBUMIN 3.3 g/dL (3.4-5.0); ANION GAP 10 mmol/L (5-15); CALCIUM 9.3 mg/dL (8.5-10.1); CHLORIDE 100 mmol/L (98-107); CREATININE 9.14 mg/dL (0.55-1.02)
[2017-09-12 01:11] LABS: MD YES; MEAN CORPUSCULAR HEMOGLOBIN 32.8 pg (27.0-34.8); MEAN CORPUSCULAR HGB CONC 33.7 g/dL (32.4-35.8); MEAN CORPUSCULAR VOLUME 97.4 fL (80-100); MEAN PLATELET VOLUME 6.6 fL (7.4-10.4); PLATELET COUNT 280 x10^3/uL (130-400); RED BLOOD COUNT 2.54 x10^6/uL (3.82-5.3); RED CELL DISTRIBUTION WIDTH 15.4 % (9.6-15.2)
[2017-09-12 01:13] LABS: BAND#(MANUAL) 0.15 x10^3/uL; BANDS%(MANUAL) 1 % (0-7); EOS#(MANUAL) 0.15 x10^3/uL (0.0-0.4); EOS% (MANUAL) 1 % (1-7); LYMPH#(MANUAL) 4.13 x10^3/uL (1-3.4); LYMPHS% (MANUAL) 27 % (22-44); MONOS#(MANUAL) 0.31 x10^3/uL (0.3-2.7); MONOS% (MANUAL) 2 % (2-9); NRBC % (MANUAL) 1 % (0-1); SEG#(MANUAL) 10.56 x10^3/uL (1.8-6.8); SEGS% (MANUAL) 69 % (42-75)
[2017-09-12 01:14] LABS: ANISOCYTOSIS 1+; FREE T4 (FREE THYROXINE) 1.07 ng/dL (0.76-1.46); POLYCHROMASIA 1+
[2017-09-12 01:15] LABS: <PLATELET ESTIMATE> ADEQUATE; <PLT MORPHOLOGY> NORMAL PLT MORPH
[2017-09-12] MEDS ORDERED: ZIPRASIDONE 20 MG INJ IM ONE ×2 (01:34→02:00)
[2017-09-12 01:56] VITALS: BP 165/88
== END 2017-09-12 01:58 | disposition home or self-care (01) ==
LOC: ED 01:00
DX: I12.0 Hypertensive chronic kidney disease with stage 5 chronic kidney disease or end stage renal disease (principal); N18.6 End stage renal disease; D63.1 Anemia in chronic kidney disease; F41.1 Generalized anxiety disorder; Z99.2 Dependence on renal dialysis
CPT/HCPCS: 36415; 80048; 82040; 83735; 84439; 84443; 85025; 96372; 96374; 99284; J2060; J3486

== ENCOUNTER 2017-09-18 03:04 | Emergency (ER) | payer MEDICAID ==
[~2017-09-18] VITALS: Ht 175.3 cm; Wt 115.0 kg
[2017-09-18] MEDS ORDERED: hydrOXyzine 50MG TABLET ONE (04:15)
[2017-09-18 04:19] VITALS: BP 174/90
[2017-09-18] MEDS ORDERED: LOSA100T6 PO (15:34)
[2017-09-18] MEDS ORDERED: AMLO10TA2 PO (15:34)
[2017-09-18] MEDS ORDERED: FERR325T18 PO (15:34)
[2017-09-18] MEDS ORDERED: FERR210T PO (15:34)
== END 2017-09-18 04:55 | disposition home or self-care (01) ==
LOC: ED 03:07
DX: F41.1 Generalized anxiety disorder (principal); I12.0 Hypertensive chronic kidney disease with stage 5 chronic kidney disease or end stage renal disease; N18.6 End stage renal disease; Z99.2 Dependence on renal dialysis
CPT/HCPCS: 71045; 93005; 99284; Q0177

== ENCOUNTER 2017-09-18 15:19 | Emergency (ER) | payer MEDICAID ==
[~2017-09-18] VITALS: Ht 175.3 cm; Wt 115.0 kg
[2017-09-18 15:24] VITALS: BP 140/73
[2017-09-18] MEDS ORDERED: AMLO10TA2 PO (15:34)
[2017-09-18] MEDS ORDERED: FERR210T PO (15:34)
[2017-09-18] MEDS ORDERED: FERR325T18 PO (15:34)
[2017-09-18] MEDS ORDERED: LOSA100T6 PO (15:34)
[2017-09-18] MEDS ORDERED: SODIUM CHLORIDE FLUSH 10ML SYR IVF ONE (16:00)
[2017-09-18 16:11] LABS: BASOPHILS # (AUTO) 0.05 x10^3/uL (0-0.1); BASOPHILS % (AUTO) 1 % (0-1); EOSINOPHILS # (AUTO) 0.16 x10^3/uL (0-0.4); EOSINOPHILS % (AUTO) 2 % (1-7); LYMPHOCYTES # (AUTO) 2.39 x10^3/uL (1-3.4); LYMPHOCYTES % (AUTO) 29 % (22-44); MD NO; MEAN CORPUSCULAR HEMOGLOBIN 32.3 pg (27.0-34.8); MEAN CORPUSCULAR HGB CONC 32.8 g/dL (32.4-35.8); MEAN CORPUSCULAR VOLUME 98.4 fL (80-100); MEAN PLATELET VOLUME 6.9 fL (7.4-10.4); MONOCYTES # (AUTO) 0.61 x10^3/uL (0.2-0.8); MONOCYTES % (AUTO) 8 % (2-9); NEUTROPHILS # (AUTO) 4.91 x10^3/uL (1.8-6.8); NEUTROPHILS % (AUTO) 60 % (42-75); PLATELET COUNT 248 x10^3/uL (130-400); RED BLOOD COUNT 2.68 x10^6/uL (3.82-5.3); RED CELL DISTRIBUTION WIDTH 15.8 % (9.6-15.2)
[2017-09-18 16:16] LABS: ALBUMIN 3.5 g/dL (3.4-5.0); ANION GAP 9 mmol/L (5-15); CALCIUM 9.4 mg/dL (8.5-10.1); CHLORIDE 101 mmol/L (98-107)
[2017-09-18 16:22] LABS: ALANINE AMINOTRANSFERASE 16 U/L (12-78); ALKALINE PHOSPHATASE 86 U/L (45-117); BILIRUBIN,TOTAL 0.5 mg/dL (0.2-1.0); CREATININE 9.75 mg/dL (0.55-1.02); TOTAL PROTEIN 7.4 g/dL (6.4-8.2); TROPONIN I 0.019 ng/mL (0.000-0.045)
[2017-09-18 16:40] LABS: MICROSCOPIC INDICATED
[2017-09-18 16:41] LABS: CULTURE INDICATED? YES
== END 2017-09-18 18:26 | disposition home or self-care (01) ==
LOC: ED 15:39
DX: I13.2 Hypertensive heart and chronic kidney disease with heart failure and with stage 5 chronic kidney disease, or end stage renal disease (principal); I50.22 Chronic systolic (congestive) heart failure; N18.6 End stage renal disease; N30.00 Acute cystitis without hematuria; Z99.2 Dependence on renal dialysis
CPT/HCPCS: 36415; 71045; 80053; 81001; 83880; 84484; 84703; 85025; 86850; 86900; 87086; 93005; 99285

== ENCOUNTER 2017-09-26 00:44 | Emergency (ER) | payer MEDICAID ==
[~2017-09-26] VITALS: Ht 175.3 cm; Wt 118.0 kg
[~2017-09-26 00:44] MED LIST changes: +AMLO10TA2 PO; +FERR210T PO; +FERR325T18 PO; +LOSA100T6 PO
[2017-09-26 01:18] LABS: BASOPHILS # (AUTO) 0.08 x10^3/uL (0-0.1); BASOPHILS % (AUTO) 1 % (0-1); EOSINOPHILS # (AUTO) 0.17 x10^3/uL (0-0.4); EOSINOPHILS % (AUTO) 2 % (1-7); LYMPHOCYTES % (AUTO) 24 % (22-44); MD NO; MEAN CORPUSCULAR HEMOGLOBIN 33.4 pg (27.0-34.8); MEAN CORPUSCULAR VOLUME 98.2 fL (80-100); MEAN PLATELET VOLUME 6.6 fL (7.4-10.4); MONOCYTES # (AUTO) 0.55 x10^3/uL (0.2-0.8); MONOCYTES % (AUTO) 6 % (2-9); NEUTROPHILS # (AUTO) 6.44 x10^3/uL (1.8-6.8); NEUTROPHILS % (AUTO) 68 % (42-75); PLATELET COUNT 243 x10^3/uL (130-400); RED BLOOD COUNT 2.43 x10^6/uL (3.82-5.3); RED CELL DISTRIBUTION WIDTH 15.7 % (9.6-15.2)
[2017-09-26 01:27] LABS: ALBUMIN 3.4 g/dL (3.4-5.0); ANION GAP 10 mmol/L (5-15); CALCIUM 9.1 mg/dL (8.5-10.1); CHLORIDE 100 mmol/L (98-107)
[2017-09-26 02:16] VITALS: BP 167/96
[2017-09-26] MEDS ORDERED: HYDR50TA13 PO (17:39)
[2017-09-26] MEDS ORDERED: CIPR500T3 PO (17:39)
== END 2017-09-26 02:18 | disposition home or self-care (01) ==
LOC: ED 01:13
DX: D64.9 Anemia, unspecified (principal); N18.9 Chronic kidney disease, unspecified; I11.0 Hypertensive heart disease with heart failure; I50.9 Heart failure, unspecified; R06.00 Dyspnea, unspecified; Z88.6 Allergy status to analgesic agent
CPT/HCPCS: 36415; 71045; 80048; 82040; 85025; 93005; 99285

== ENCOUNTER 2017-09-26 17:15 | Inpatient (IN) | payer MEDICARE, MEDICAID ==
[~2017-09-26] VITALS: Ht 175.3 cm; Wt 115.0 kg
[~2017-09-26 17:15] MED LIST changes: -LABE100T3 PO; +LABE100T6 PO; -LABE200T3 PO; +LABE200T6 PO
[2017-09-26] MEDS ORDERED: HYDR50TA13 PO (17:39)
[2017-09-26] MEDS ORDERED: CIPR500T3 PO (17:39)
[2017-09-26 18:48] LABS: BASOPHILS # (AUTO) 0.05 x10^3/uL (0-0.1); BASOPHILS % (AUTO) 1 % (0-1); EOSINOPHILS # (AUTO) 0.09 x10^3/uL (0-0.4); EOSINOPHILS % (AUTO) 1 % (1-7); LYMPHOCYTES # (AUTO) 1.49 x10^3/uL (1-3.4); LYMPHOCYTES % (AUTO) 15 % (22-44); MD NO; MEAN CORPUSCULAR HEMOGLOBIN 33.5 pg (27.0-34.8); MEAN CORPUSCULAR HGB CONC 34.3 g/dL (32.4-35.8); MEAN CORPUSCULAR VOLUME 97.5 fL (80-100); MEAN PLATELET VOLUME 7.1 fL (7.4-10.4); MONOCYTES # (AUTO) 0.46 x10^3/uL (0.2-0.8); MONOCYTES % (AUTO) 5 % (2-9); NEUTROPHILS # (AUTO) 8.12 x10^3/uL (1.8-6.8); NEUTROPHILS % (AUTO) 80 % (42-75); PLATELET COUNT 243 x10^3/uL (130-400); RED BLOOD COUNT 2.43 x10^6/uL (3.82-5.3); RED CELL DISTRIBUTION WIDTH 15.5 % (9.6-15.2)
[2017-09-26 18:58] LABS: ANION GAP 11 mmol/L (5-15); CALCIUM 8.9 mg/dL (8.5-10.1); CHLORIDE 101 mmol/L (98-107)
[2017-09-26] MEDS ORDERED: ONDANSETRON 2MG/ML, 2ML IVPush PRN (20:30)
[2017-09-26] MEDS ORDERED: hydrALAzine 20 MG/ML, 1ML IVPush PRN (20:30)
[2017-09-26] MEDS ORDERED: LABETALOL 5MG/ML, 20ML ONE (20:41)
[2017-09-26] MEDS ORDERED: hydrOXyzine 50MG TABLET ONE (20:50)
[2017-09-26] MEDS ORDERED: AMLODIPINE 5 MG TABLET PO SCH (21:00)
[2017-09-26] MEDS ORDERED: hydrOXyzine 50MG TABLET PO SCH (21:00)
[2017-09-26] MEDS ORDERED: LABETALOL HCL 100 MG PO SCH (21:00)
[2017-09-26] MEDS ORDERED: GABAPENTIN 100 MG CAPSULE PO SCH (21:00)
[2017-09-26] MEDS ORDERED: LABETALOL 5MG/ML, 20ML IVPush STA (21:08)
[2017-09-26] MEDS ORDERED: PLEASE ENTER HEIGHT AND WEIGHT MC SCH (21:30)
[2017-09-26] MEDS ORDERED: NITROGLYCERIN OINT 2%, 1GM TP ONE (21:51)
[2017-09-26] MEDS ORDERED: NITROGLYCERIN OINT 2%, 1GM TP SCH (22:00)
[2017-09-26 22:22] VITALS: BP 192/118
[2017-09-26] MEDS: ACETAMINOPHEN 325 MG TABLET PO PRN (22:48)
[2017-09-26] MEDS: SODIUM CHLORIDE FLUSH 10ML SYR IVF SCH (22:48)
[2017-09-26] MEDS: HEPARIN 5,000 UNITS/ML, 1ML SQ SCH (22:50)
[2017-09-27 02:00] VITALS: BP 171/92
[2017-09-27 05:40] LABS: ANION GAP 13 mmol/L (5-15); CALCIUM 9.2 mg/dL (8.5-10.1); CHLORIDE 100 mmol/L (98-107)
[2017-09-27 06:38] VITALS: BP 151/80
[2017-09-27] MEDS ORDERED: FERROUS SULFATE 325 MG TABLET PO SCH (08:00)
[2017-09-27] MEDS ORDERED: FERRIC CITRATE 210 MG HOMEMEDPO SCH (09:00)
[2017-09-27] MEDS ORDERED: DULOXETINE 30 MG CAPSULE.DR PO SCH (09:00)
[2017-09-27] MEDS: LOSARTAN 50MG TABLET PO SCH ×2 (09:00→13:11)
[2017-09-27] MEDS ORDERED: ARIPIPRAZOLE 5 MG TABLET PO SCH (09:00)
[2017-09-27] MEDS: SODIUM CHLORIDE FLUSH 10ML SYR IVF SCH (09:00)
[2017-09-27] MEDS ORDERED: LABETALOL 100 MG TABLET PO SCH (09:00)
[2017-09-27] MEDS: HEPARIN 5,000 UNITS/ML, 1ML SQ SCH (09:08)
[2017-09-27] MEDS: ACETAMINOPHEN 325 MG TABLET PO PRN (12:16)
[2017-09-27 12:28] VITALS: BP 163/92
[2017-09-27 12:38] VITALS: BP 117/77
== END 2017-09-27 15:35 | disposition home or self-care (01) | DRG 640 ==
LOC: ED 20:20 → EDIP 20:25 → SUATTDRO 20:27 → 4WST 22:05
PROVIDERS: ADMIT Hospitalist; ATTEND Family Medicine
PROC: 5A1D70Z Performance of Urinary Filtration, Intermittent, Less than 6 Hours Per Day (ICD-10-PCS; principal; 2017-09-27)
DX: E87.5 Hyperkalemia (principal); N18.6 End stage renal disease; I13.2 Hypertensive heart and chronic kidney disease with heart failure and with stage 5 chronic kidney disease, or end stage renal disease; N25.81 Secondary hyperparathyroidism of renal origin; I42.9 Cardiomyopathy, unspecified; E75.21 Fabry (-Anderson) disease; D63.1 Anemia in chronic kidney disease; E66.01 Morbid (severe) obesity due to excess calories; F41.1 Generalized anxiety disorder; I50.9 Heart failure, unspecified; G62.9 Polyneuropathy, unspecified; N25.0 Renal osteodystrophy; Z91.15 Patient's noncompliance with renal dialysis; Z68.37 Body mass index [BMI] 37.0-37.9, adult; Z99.2 Dependence on renal dialysis
CPT/HCPCS: 36415; 80048; 83735; 84100; 85025; 93005; 96374; 99285; J1644

== ENCOUNTER 2017-10-05 18:38 | Emergency (ER) | payer MEDICAID, MEDICARE ==
[~2017-10-05] VITALS: Ht 175.3 cm; Wt 110.0 kg
[~2017-10-05 18:38] MED LIST changes: +CIPR500T3 PO; +HYDR50TA13 PO
[2017-10-05 19:26] LABS: ALBUMIN 3.4 g/dL (3.4-5.0); ANION GAP 14 mmol/L (5-15); CALCIUM 9.4 mg/dL (8.5-10.1); CHLORIDE 100 mmol/L (98-107)
[2017-10-05 20:07] LABS: MEAN CORPUSCULAR HEMOGLOBIN 33.2 pg (27.0-34.8); MEAN CORPUSCULAR HGB CONC 34.1 g/dL (32.4-35.8); MEAN CORPUSCULAR VOLUME 97.2 fL (80-100); MEAN PLATELET VOLUME 6.5 fL (7.4-10.4); PLATELET COUNT 286 x10^3/uL (130-400); RED BLOOD COUNT 2.35 x10^6/uL (3.82-5.3); RED CELL DISTRIBUTION WIDTH 15.3 % (9.6-15.2)
[2017-10-05 20:17] LABS: BASOPHILS # (AUTO) 0.04 x10^3/uL (0-0.1); BASOPHILS % (AUTO) 0 % (0-1); EOSINOPHILS # (AUTO) 0.18 x10^3/uL (0-0.4); EOSINOPHILS % (AUTO) 2 % (1-7); LYMPHOCYTES # (AUTO) 2.41 x10^3/uL (1-3.4); LYMPHOCYTES % (AUTO) 27 % (22-44); MD SCAN; MONOCYTES # (AUTO) 0.41 x10^3/uL (0.2-0.8); MONOCYTES % (AUTO) 5 % (2-9); NEUTROPHILS # (AUTO) 5.94 x10^3/uL (1.8-6.8); NEUTROPHILS % (AUTO) 66 % (42-75)
[2017-10-05 21:03] VITALS: BP 181/99
== END 2017-10-05 21:39 ==
LOC: ED 20:50
DX: E87.5 Hyperkalemia (principal); N18.6 End stage renal disease; I13.2 Hypertensive heart and chronic kidney disease with heart failure and with stage 5 chronic kidney disease, or end stage renal disease; I50.9 Heart failure, unspecified; Z99.2 Dependence on renal dialysis
CPT/HCPCS: 36415; 71045; 80048; 82040; 85025; 93005; 99285

== ENCOUNTER 2018-01-02 09:51 | Emergency (ER) | payer MEDICARE ==
[~2018-01-02] VITALS: Ht 157.5 cm; Wt 108.0 kg
[~2018-01-02 09:51] MED LIST changes: -AMLO10TA2 PO; +AMLO10TA6 PO; -AMLO2.5T PO; +AMLO2.5T3 PO; -AMLO5TAB2 PO; +AMLO5TAB7 PO; -LOSA100T6 PO; +LOSA100T7 PO
[2018-01-02 10:05] VITALS: BP 140/73
[2018-01-02] MEDS ORDERED: LORazepam 1MG TABLET ONE (12:57)
[2018-01-02] MEDS ORDERED: LORazepam 1MG TABLET PO ONE (13:00)
== END 2018-01-02 13:14 | disposition home or self-care (01) ==
LOC: ED 12:50
DX: F41.1 Generalized anxiety disorder (principal); I13.2 Hypertensive heart and chronic kidney disease with heart failure and with stage 5 chronic kidney disease, or end stage renal disease; N18.6 End stage renal disease; I50.9 Heart failure, unspecified
CPT/HCPCS: 99284

== ENCOUNTER 2018-01-07 22:56 | Emergency (ER) | payer MEDICARE ==
[~2018-01-07] VITALS: Ht 175.3 cm; Wt 110.0 kg
[2018-01-08] MEDS ORDERED: LORazepam 1MG TABLET ONE (00:11)
[2018-01-08] MEDS ORDERED: LORazepam 1MG TABLET PO ONE (00:30)
[2018-01-08 01:02] VITALS: BP 166/85
== END 2018-01-08 01:04 | disposition home or self-care (01) ==
LOC: ED 01-08 00:37
DX: F41.1 Generalized anxiety disorder (principal); I50.9 Heart failure, unspecified; I12.0 Hypertensive chronic kidney disease with stage 5 chronic kidney disease or end stage renal disease; N18.6 End stage renal disease; Z99.2 Dependence on renal dialysis
CPT/HCPCS: 99284

== ENCOUNTER 2018-01-09 14:45 | Emergency (ER) | payer MEDICARE ==
[~2018-01-09] VITALS: Ht 175.3 cm; Wt 107.5 kg
[2018-01-09 15:25] LABS: BASOPHILS # (AUTO) 0.05 x10^3/uL (0-0.1); BASOPHILS % (AUTO) 0 % (0-1); EOSINOPHILS % (AUTO) 1 % (1-7); LYMPHOCYTES # (AUTO) 2.25 x10^3/uL (1-3.4); LYMPHOCYTES % (AUTO) 21 % (22-44); MD NO; MEAN CORPUSCULAR HEMOGLOBIN 32.6 pg (27.0-34.8); MEAN CORPUSCULAR HGB CONC 33.8 g/dL (32.4-35.8); MEAN CORPUSCULAR VOLUME 96.3 fL (80-100); MEAN PLATELET VOLUME 6.3 fL (7.4-10.4); MONOCYTES # (AUTO) 0.63 x10^3/uL (0.2-0.8); MONOCYTES % (AUTO) 6 % (2-9); NEUTROPHILS # (AUTO) 7.81 x10^3/uL (1.8-6.8); NEUTROPHILS % (AUTO) 72 % (42-75); PLATELET COUNT 216 x10^3/uL (130-400); RED BLOOD COUNT 2.44 x10^6/uL (3.82-5.3); RED CELL DISTRIBUTION WIDTH 16.2 % (9.6-15.2)
[2018-01-09 15:33] LABS: ALBUMIN 3.5 g/dL (3.4-5.0); ANION GAP 10 mmol/L (5-15); CALCIUM 9.4 mg/dL (8.5-10.1); CHLORIDE 96 mmol/L (98-107); CREATININE 6.02 mg/dL (0.55-1.02)
[2018-01-09] MEDS ORDERED: ONDANSETRON ODT 4 MG ONE (15:52)
[2018-01-09] MEDS ORDERED: ONDANSETRON ODT 4 MG PO ONE (16:00)
[2018-01-09 16:32] LABS: CULTURE INDICATED? YES; MICROSCOPIC INDICATED
[2018-01-09 16:54] VITALS: BP 162/47
== END 2018-01-09 17:54 | disposition home or self-care (01) ==
LOC: ED 17:46
DX: I12.9 Hypertensive chronic kidney disease with stage 1 through stage 4 chronic kidney disease, or unspecified chronic kidney disease (principal); N18.9 Chronic kidney disease, unspecified
CPT/HCPCS: 36415; 80048; 81001; 82040; 85025; 87086; 99284; Q0162

== ENCOUNTER 2020-01-10 03:14 | Emergency (ER) | payer MEDICARE ==
[~2020-01-10] VITALS: Ht 175.3 cm; Wt 119.4 kg
[~2020-01-10 03:14] MED LIST changes: +AMLO-150 PO; +AMLO-211 PO; -AMLO10TA6 PO; -AMLO2.5T3 PO; +AMLO2.5T5 PO; -AMLO5TAB7 PO; +CALC200T24 PO; +CARV3.122 PO; +CARV6.2512 PO; +CEFD300C37 PO; +DOXY100C15 PO; +DULO20CA18 PO; +ERGO500017 PO; +GUAI1TBM11 PO; +HYDR-3343 PO; +HYDR50CA2 PO; -HYDR50TA13 PO; +HYDR50TA99 PO; +LOSA100T14 PO; -LOSA100T7 PO; +MELA3TAB31 PO; +SEVE800T8 PO
[2020-01-10 04:03] VITALS: BP 158/79
== END 2020-01-10 04:40 | disposition home or self-care (01) ==
LOC: ED 04:00
DX: M79.642 Pain in left hand (principal); M79.641 Pain in right hand; M79.671 Pain in right foot; M79.672 Pain in left foot; I11.0 Hypertensive heart disease with heart failure; I50.9 Heart failure, unspecified
CPT/HCPCS: 99283